=== PATIENT | male | born 1945 | race Caucasian/White ===

== ENCOUNTER → 2022-01-28 | Outpatient (CLI) | payer MEDICARE, BC ==
[~2022-01-28] MED LIST: IOPAMIDOL 370 MG/ML 100 ML INFUS..BTL INJ ONE; SODIUM CHLORIDE 0.9% 500ML 500 ML ONE
[2022-01-28 10:10] LABS: CREATININE, SERUM 1.27 mg/dL (0.72-1.25)
== END ==
LOC: NM 09:06
PROVIDERS: ATTEND Urology
DX: C61 Malignant neoplasm of prostate (principal)
CPT/HCPCS: 36415; 71046; 74177; 78306; 82565; 84520; 96360; A9503; J7040; Q9967

== ENCOUNTER 2024-07-25 11:45 | Emergency (ER) | payer MEDICARE, BC ==
[~2024-07-25] VITALS: Ht 177.8 cm; Wt 87.1 kg
[2024-07-25 12:11] VITALS: TEMP 98.1
[2024-07-25 13:00] VITALS: PULSE 70; RESP 18
[2024-07-25 13:03] LABS: BASOPHILS % 0.6 % (0.0-1.0); EOSINOPHILS # (AUTO) 0.3 (0.0-0.4); HEMOGLOBIN 14.2 g/dL (14.0-18.0); LYMPHOCYTES # (AUTO) 1.2 (1.0-3.2); MEAN CORPUSCULAR HEMOGLOBIN 32.3 pg (28-32); MEAN CORPUSCULAR HGB CONC 32.3 g/dL (31-35); MONOCYTES # (AUTO) 0.5 (0.2-0.8); MONOCYTES % 9.2 % (4.4-11.3); NEUTROPHILS # (AUTO) 3.3 (2.1-6.9); NEUTROPHILS % 62.8 % (38.7-80.0); RED CELL DISTRIBUTION WIDTH 12.2 % (11.7-14.4); WHITE BLOOD COUNT 5.22 x10e3/uL (4.8-10.8)
[2024-07-25 13:05] LABS: PLATELET COUNT 76 x10e3/uL (140-360)
[2024-07-25 13:27] LABS: INR 0.87; PROTHROMBIN TIME 12.4 seconds (11.9-14.5)
[2024-07-25 13:34] LABS: ALBUMIN 4.3 g/dL (3.5-5.0); ALBUMIN/GLOBULIN RATIO 1.8 (0.8-2.0); BILIRUBIN,TOTAL 0.7 mg/dL (0.2-1.2); CALCIUM 9.3 mg/dL (8.4-10.2); MAGNESIUM 1.9 MG/DL (1.3-2.1); TOTAL PROTEIN 6.7 g/dL (6.5-8.1)
[2024-07-25 13:39] LABS: TROPONIN I 0.001 ng/mL (0-0.300)
[2024-07-25 14:00] VITALS: BP 160/89; PULSE 66; RESP 18; TEMP 98; O2SAT 96
== END 2024-07-25 14:05 | disposition home or self-care (01) ==
LOC: ER 12:17
DX: R60.9 Edema, unspecified (principal); I87.8 Other specified disorders of veins; D69.6 Thrombocytopenia, unspecified; E78.5 Hyperlipidemia, unspecified; R94.31 Abnormal electrocardiogram [ECG] [EKG]; Z85.46 Personal history of malignant neoplasm of prostate
CPT/HCPCS: 36415; 71045; 80053; 82550; 83735; 83880; 84484; 85025; 85610; 85730; 93005; 93971; 99284